=== PATIENT | male | born 1995 | race African-American/Black ===

== ENCOUNTER 2018-09-25 13:18 | Emergency (ER) | payer OTHER ==
[~2018-09-25] VITALS: Ht 185.4 cm; Wt 122.9 kg
[2018-09-25] MEDS ORDERED: LIDOCAINE 1%/EPI 1:100,000 20 ML VIAL. IJ ONE (14:45)
--- NOTE | 2018-09-25 14:45 | PHYS DOC ---
Past History Past Medical History: No Pertinent History Past Surgical History: Tonsillectomy Alcohol Use: None Drug Use: None Adult General Chief Complaint Chief Complaint: LACERATION/AVULSION HPI HPI Patient is a 23 year old male who presents with complaint of laceration to the left hand. 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 Bleeding controlled prior to arrival. Patient's tetanus immunization is up-to-date. States that he has no limitation in movement of the hand. Denies any other injuries. Review of Systems Review of Systems Constitutional: Denies fever or chills [] Musculoskeletal: Denies back pain or joint pain [] Integument: Left hand laceration[] Neurologic: Denies headache, focal weakness or sensory changes [] All other systems were reviewed and found to be within normal limits, except as documented in this note. Current Medications Current Medications Current Medications Medications (Trade) Dose Ordered Sig/Rafi Start Time Stop Time Status Last Admin Dose Admin Lidocaine/ Epinephrine (Xylocaine 1%-Epi 1:100,000) 20 ml 1X ONCE 09/25/18 14:45 09/25/18 14:46 Allergies Allergies Allergies Coded Allergies Type Severity Reaction Last Updated Verified No Known Drug Allergies 09/25/18 No Physical Exam Physical Exam Constitutional: Well developed, well nourished, no acute distress, non-toxic appearance. [] Skin: Warm, dry, no erythema, 2.5 cm laceration on dorsal lateral aspect of left hand overlying the second metacarpal, visualized fat tissue, no visualized foreign body or tendon damage. [] Extremities: No tenderness, no cyanosis, no clubbing, ROM intact in left hand and digits, no edema. [] Neurologic: Alert and oriented X 3, normal motor function, normal sensory function, no focal deficits noted. [] Current Patient Data Vital Signs Vital Signs Date Time Temp Pulse Resp B/P (MAP) Pulse Ox O2 Delivery O2 Flow Rate FiO2 09/25/18 13:31 98.2 75 16 96 Room Air Lab Results Not performed EKG EKG Not performed[] Radiology/Procedures Radiology/Procedures Indication: Left hand laceration Procedure: The patient was placed in the appropriate position and anesthesia around the laceration was achieved with injection of lidocaine 1% with epinephrine. The area was then irrigated copiously with saline and prepped with Betadine. The laceration was closed using 4-0 nylon simple interrupted sutures. The wound area was then dressed with an adhesive bandage. Total repaired wound length: 2.5 cm. Other Items: Total suture count: 4 The patient tolerated the procedure without difficulty. Complications: None.[] Course & Med Decision Making Course & Med Decision Making Pertinent Labs and Imaging studies reviewed. (See chart for details) The patient's laceration was repaired as outlined in procedure note. Advised follow-up in 10-12 days with primary doctor for removal of sutures. Advised return to emergency department for any worsening symptoms. Patient was understanding and in agreement with treatment plan. Dragon Disclaimer Dragon Disclaimer This electronic medical record was generated, in whole or in part, using a voice recognition dictation system. Departure Departure: Impression: Primary Impression: Laceration of left hand Disposition: 01 HOME, SELF-CARE Condition: IMPROVED Referrals: [facility] (PCP) Patient Instructions: Laceration Care, Adult Additional Instructions: Follow-up with your primary doctor in 10-12 days for reevaluation. Return to the emergency department for any worsening symptoms. Problem Qualifiers Primary Impression: Laceration of left hand Encounter type: initial encounter Foreign body presence: without foreign body Qualified Codes: S61.412A - Laceration without foreign body of left hand, initial encounter EMILY WILLIS MD Sep 25, 2018 14:45
[2018-09-25 14:49] VITALS: BP 146/67
== END 2018-09-25 14:49 | disposition home or self-care (01) ==
LOC: ER 13:18
DX: S61.412A Laceration without foreign body of left hand, initial encounter (principal); W27.8XXA Contact with other nonpowered hand tool, initial encounter; Y93.89 Activity, other specified; Y92.89 Other specified places as the place of occurrence of the external cause; Y99.0 Civilian activity done for income or pay
CPT/HCPCS: 12001; 99283